=== PATIENT | male | born 1945 | race Caucasian/White ===

== ENCOUNTER 2017-08-13 18:57 | Observation (INO) | payer MEDICARE ==
[2017-08-13] MEDS ORDERED: NS 0.9% 1000 ML* 1,000 ML IV ONE (20:06)
[2017-08-13 20:28] LABS: Hematocrit 31 % (42-52); Hemoglobin 10.6 g/dl (14.0-18.0); Mean Corpuscular HGB Conc 34 g/dl (31-36); Mean Corpuscular Hemoglobin 30 pg (27-31); Mean Corpuscular Volume 88 fL (80-94); Mean Platelet Volume 7 um3 (7.4-10.4); Red Blood Count 3.57 10^6/ul (4.0-5.4); Red Cell Distribution Width 15 % (10.5-15); White Blood Count 9.1 10^3/ul (3.5-10.8)
--- NOTE | 2017-08-13 20:36 | RAD ---
HISTORY: Altered mental status COMPARISONS: None TECHNIQUE: Multiple contiguous axial CT scans were obtained of the head without intravenous contrast. FINDINGS: HEMORRHAGE/INFARCT: There is no hemorrhage or acute infarct. MASSES/SHIFT: There is no mass or shift. EXTRA-AXIAL SPACES: There are no extra-axial fluid collections. SULCI AND VENTRICLES: There is mild diffuse and proportional enlargement of the sulci and ventricles. CEREBRUM: There are no focal parenchymal abnormalities. BRAINSTEM: There are no focal parenchymal abnormalities. CEREBELLUM: There are no focal parenchymal abnormalities. VESSELS: The vessels are grossly normal. PARANASAL SINUSES: The paranasal sinuses are clear. ORBITS: The orbits are unremarkable. BONES AND SOFT TISSUE: No bone or soft tissue abnormalities are noted. OTHER: None IMPRESSION: NO ACUTE INTRACRANIAL PATHOLOGY.
[2017-08-13 20:43] LABS: ALT 17 U/L (7-52); AST 34 U/L (13-39); Albumin 3.8 g/dL (3.2-5.2); Alkaline Phosphatase 66 U/L (34-104); Anion Gap 4 mmol/L (2-11); BUN/Creatinine Ratio 33.6 (8-20); Blood Urea Nitrogen 47 mg/dL (6-24); CO2 Carbon Dioxide 31 mmol/L (22-32); Calcium 9.1 mg/dL (8.6-10.3); Chloride 105 mmol/L (101-111); Creatine Kinase 539 U/L (10-223); EGFR African American 64.1 (>60); EGFR Non-African American 49.8 (>60); Globulin 2.6 g/dL (2-4); Glucose 127 mg/dL (70-100); Magnesium 2.2 mg/dL (1.9-2.7); Potassium 3.8 mmol/L (3.5-5.0); Sodium 140 mmol/L (133-145); Total Protein 6.4 g/dL (6.4-8.9)
--- NOTE | 2017-08-13 20:43 | RAD ---
HISTORY: Altered mental status COMPARISONS: None VIEWS: 2: frontal portable view of the chest at 8:23 PM FINDINGS: LINES AND TUBES: None. CARDIOMEDIASTINAL SILHOUETTE: The cardiomediastinal silhouette is normal for portable technique. PLEURA: The costophrenic angles are sharp. No pleural abnormalities are noted. LUNG PARENCHYMA: The lungs are clear. ABDOMEN: The upper abdomen is clear. There is no subphrenic gas. BONES AND SOFT TISSUES: No bone or soft tissue abnormalities are noted. IMPRESSION: NO ACTIVE CARDIOPULMONARY DISEASE.
[2017-08-13 20:44] LABS: Troponin I 0.01 ng/mL (<0.04)
[2017-08-13 21:02] LABS: Acetaminophen < 15 mcg/mL; Alcohol < 10 mg/dL (<10); Salicylate < 2.50 mg/dL (<30)
[2017-08-13 21:07] LABS: PCO2 Arterial 41 mmHg (35-45)
--- NOTE | 2017-08-13 21:07 | ED ---
Leana Martinez Alfonso, scribed for Sosa Velasquez MD on 08/13/17 at 2043 . Altered Mental Status - HPI Summary HPI Summary: LEVEL 5 CAVAET DUE TO AMS. This patient is a 72 year [facility] worse since earlier today. The patient is not complaining of any pain. He is speaking in garbled sentences. Pt now moving all extremities in bed and talking inappropriate words. Patients daughter was visiting two days ago and asking for water two days ago "but they didn't have any cups and so I was using a mariluz cup of ice to try to rehydrate him. - History Of Current Complaint Chief Complaint: EDAltMentalStatus Stated Complaint: AMS Time Seen by Provider: 08/13/17 20:02 Hx Obtained From: Family/Deposit Clerk, Medical Records Hx From Patient Unobtainable Due To: Altered Mental Status Onset/Duration: Still Present Timing: Constant Severity Initially: Moderate Severity Currently: Severe Character: Responsiveness Aggravating Factor(s): Other - lack of po hydration per daughter Alleviating Factor(s): Nothing Associated Signs And Symptoms: Positive: Negative - Allergies/Home Medications Allergies/Adverse Reactions: Allergies Allergy/AdvReac Type Severity Reaction Status Date / Time No Known Allergies Allergy Verified 08/13/17 19:12 Home Medications: Home Medications Acetaminophen TAB* [Tylenol TAB*] 650 mg PO Q4HR PRN 08/13/17 [History Confirmed 08/13/17] Aspirin [Aspirin 81 MG TAB] 81 mg PO DAILY 08/13/17 [History Confirmed 08/13/17] Atorvastatin* [Lipitor 20 MG*] 20 mg PO DAILY 08/13/17 [History Confirmed ] Folic Acid TAB* [Folvite TAB*] 1 mg PO DAILY 08/13/17 [History Confirmed ] Lisinopril TAB* [Prinivil TAB 10 MG*] 10 mg PO DAILY 08/13/17 [History Confirmed 08/13/17] Magnesium Hydroxide LIQ* [Milk of Magnesia LIQ*] 30 ml PO DAILY PRN 08/13/17 [ History Confirmed 08/13/17] Memantine TAB* [Namenda TAB*] 10 mg PO BID 08/13/17 [History Confirmed 08/13/17] Multiple Vitamins W/ Minerals [Multiple Vitamin/Minerals] 1 tab PO DAILY [History Confirmed 08/13/17] Dsptn-7-Ghjl Ethyl Esters [Lovaza 1 gm] 1 cap PO DAILY 08/13/17 [History Confirmed 08/13/17] Ondansetron ODT TAB* [Zofran 4 MG Odt TAB*] 4 mg SL Q6HR PRN 08/13/17 [History Confirmed 08/13/17] QUEtiapine TAB* [Seroquel TAB*] 50 mg PO DAILY 08/13/17 [History Confirmed 08/13] QUEtiapine TAB* [Seroquel TAB*] 100 mg PO BEDTIME 08/13/17 [History Confirmed ] Sennosides-Docusate Sodium [Sennalax-S 8.6-50 mg] 1 tab PO BID 08/13/17 [ History Confirmed 08/13/17] Thiamine TAB* [Vitamin B-1 TAB 100 MG*] 100 mg PO DAILY 08/13/17 [History Confirmed 08/13/17] risperiDONE TAB* [Risperdal*] 1 mg PO BEDTIME 08/13/17 [History Confirmed ] PMH/Surg Hx/FS Hx/Imm Hx Previously Healthy: No Cardiovascular History: Reports: Hx Hypercholesterolemia, Hx Hypertension Opthamlomology History: Denies: Hx Legally Blind EENT History: Denies: Hx Deafness Neurological History: Reports: Hx Dementia - Surgical History Surgery Procedure, Year, and Place: unknown level 5 cavaet Infectious Disease History: No Infectious Disease History: Denies: Traveled Outside the US in Last 30 Days - Family History Known Family History: Positive: Unknown - LEVEL 5 CAVAET - Social History [facility]: [facility] Alcohol Use: None Hx Substance Use: No Substance Use Type: Reports: None Smoking Status (MU): Unknown if Ever Smoked Review of Systems Positive: Other - Dehydration. Negative: Fever Neurological: Other - AMS All Other Systems Reviewed And Are Negative: No Physical Exam Triage Information Reviewed: Yes Vital Signs On Initial Exam: Initial Vitals Temp Pulse Resp BP Pulse Ox 98.0 F 90 20 103/44 99 08/13/17 19:02 08/13/17 19:02 08/13/17 19:02 08/13/17 19:02 08/13/17 19:02 Vital Signs Reviewed: Yes Completion Of Physical Exam Limited Due To: Altered Mental Status, Level 5 Appearance: Positive: No Pain Distress, Well-Nourished, Ill-Appearing Skin: Positive: Warm, Skin Color Reflects Adequate Perfusion, Other - dry mucous membranes Head/Face: Positive: Normal Head/Face Inspection Eyes: Positive: Conjunctiva Clear ENT: Positive: Other - DRY ORAL MUCOSA Neck: Positive: Supple, Nontender, No Lymphadenopathy Respiratory/Lung Sounds: Positive: Clear to Auscultation, Breath Sounds Present , Other - No respiratory distress Cardiovascular: Positive: RRR, Pulses are Symmetrical in both Upper and Lower Extremities, Other - Brisk capillary refill. Negative: Murmur Abdomen Description: Positive: Nontender, No Organomegaly, Soft. Negative: Distended, Guarding, Hepatomegaly, McBurney's Point Tenderness, Peritoneal Signs , Pulsatile Mass, Splenomegaly Bowel Sounds: Positive: Present Musculoskeletal: Positive: Strength/ROM Intact Neurological: Positive: Disoriented, Other - Eyes open, responds to speech. Psychiatric: Positive: Normal - [place] Coma Scale Best Eye Response: 4 - Spontaneous Best Motor Response: 5 - Purposeful Movement Best Verbal Response: 3 - Inappropriate Words Coma Scale Total: 10 Glascow Coma Scale Comments: 08/17 AT 2038. Diagnostics - Vital Signs Vital Signs Temp Pulse Resp BP Pulse Ox 08/13/17 20:11 98 08/13/17 20:01 98 08/13/17 20:00 46 20 08/13/17 19:40 162 17 122/55 82 08/13/17 19:04 90 12 99/45 98 08/13/17 19:03 90 13 97 08/13/17 19:02 98.0 F 90 20 103/44 99 - Laboratory Lab Results: Lab Results 08/13/17 08/13/17 Range/Units 20:13 20:13 WBC 9.1 (3.5-10.8) 10^3/ul RBC 3.57 L (4.0-5.4) 10^6/ul Hgb 10.6 L (14.0-18.0) g/dl Hct 31 L (42-52) % MCV 88 (80-94) fL MCH 30 (27-31) pg MCHC 34 (31-36) g/dl RDW 15 (10.5-15) % Plt Count 363 (150-450) 10^3/ul MPV 7 L (7.4-10.4) um3 Neut % (Auto) 82.5 (38-83) % Lymph % (Auto) 7.6 L (25-47) % [place] % (Auto) 8.8 (1-9) % Eos % (Auto) 0.2 (0-6) % Baso % (Auto) 0.9 (0-2) % Absolute Neuts (auto) 7.5 (1.5-7.7) 10^3/ul Absolute Lymphs (auto) 0.7 L (1.0-4.8) 10^3/ul Absolute Monos (auto) 0.8 (0-0.8) 10^3/ul Absolute Eos (auto) 0 (0-0.6) 10^3/ul Absolute Basos (auto) 0.1 (0-0.2) 10^3/ul Absolute Nucleated RBC 0 10^3/ul Nucleated RBC % 0 INR (Anticoag Therapy) 0.99 (0.77-1.02) Result Diagrams: 08/13/17 20:13 08/13/17 20:13 Lab Statement: Any lab studies that have been ordered have been reviewed, and results considered in the medical decision making process. - Radiology CXR Radiology Interpretation Completed By: Radiologist - NO ACTIVE CARDIOPULMONARY DISEASE. ED physician has reviewed this radiology report. - CT Brain CT Interpretation Completed By: Radiologist - NO ACUTE INTRACRANIAL PATHOLOGY. ED physician has reviewed this radiology report. - EKG 2033 Cardiac Rate: NL EKG Rhythm: Sinus Rhythm - 84 BPM EKG Interpretation: Normal AV IV CT, QTc, axis. NAC. EKG Comparison: Other - No prior to compare. Altered Mental Statu Course/Dx - Course Assessment/Plan: Patients medications reviewed this visit. In the ED course the patient was given IV fluids. Consulted Dr. Cummins (hospitalist) at 2109 who agrees to admit. - Diagnoses Differential Diagnosis/HQI/PQRI: Hypoglycemia, Hypothermia, Intracranial Bleed, Medication Reaction, Metabolic Disorder, Sepsis Discharge Diagnoses: Altered mental status, Dehydration - Provider Notifications Discussed Care Of Patient With: Lindy Cummins Time Discussed With Above Provider: 21:10 Instructed by Provider To: Other - Consulted Dr. Cummins (hospitalist) at 2109 who agrees to admit. Discharge - Discharge Plan Condition: Stable Disposition: ADMITTED TO [facility] documentation as recorded by the Leana mayer Alfonso accurately reflects the service I personally performed and the decisions made by , Sosa Velasquez MD.
[2017-08-13 21:17] LABS: TSH (Thyroid Stimulating Horm) 0.47 mcIU/mL (0.34-5.60)
[2017-08-13 21:30] LABS: Urine Bilirubin Negative (Negative); Urine Glucose 1+(50 mg/dL) (Negative); Urine Nitrite Negative (Negative)
[2017-08-13] MEDS ORDERED: Acetaminophen TAB* 325 MG PO PRN (22:12)
[2017-08-13] MEDS ORDERED: Magnesium Hydroxide LIQ* 30 ML UDC PO PRN (22:12)
[2017-08-13] MEDS ORDERED: QUEtiapine TAB* 100 MG PO SCH (23:00)
[2017-08-13] MEDS ORDERED: risperiDONE TAB* 1 MG PO SCH (23:00)
[2017-08-13] MEDS: NS 0.9% 1000 ML* 1,000 ML IV SCH (23:20)
--- NOTE | 2017-08-14 01:40 | HP ---
CC: Dr. Chace Wayne, [facility] * HISTORY AND PHYSICAL: DATE OF ADMISSION: 08/13/17 PRIMARY CARE PROVIDER: Dr. Chace Wayne at [facility]. CHIEF COMPLAINT: Altered mental status. HISTORY OF PRESENT ILLNESS: Mr. Cam is a 72-year-old male who was admitted to [facility] on 05/28/17 from [facility] in [place], [place] after he was found to be wandering in his neighborhood in the nude and was confused. Prior to his hospitalization in [place], the patient had been living alone, but was unable to take his own medications, was eating food, and had maggots on himself and in his home. At that point, it was determined he could no longer live alone. The patient reportedly had an extensive workup there. It was felt that his confusion was likely related to dementia and possibly related to history of alcohol use. The patient was seen by myself at [facility] approximately 3 weeks ago. At that time, he was standing, looking at the window in his room. He told me he enjoyed looking at the animals outside. The patient was reportedly eating dinner on the evening of admission to [facility] when he suddenly stopped eating. At that time, nursing began to feed him. He chocked on the food and then reportedly had some shaking. The patient's blood pressure was found to be low at 70 systolic and he was sent to the emergency room for evaluation. The patient in the emergency room was noted to be very lethargic. He has perked up with IV fluids and at this point, is able to tell me he does feel thirsty. He tells me he feels great. He denies any pain. The rest of his history is unreliable. PAST MEDICAL HISTORY: 1. Hypertension. 2. Dementia of unknown etiology. 3. History of alcohol abuse. PAST SURGICAL HISTORY: Unknown. ALLERGIES: Unknown. FAMILY HISTORY: Unknown. SOCIAL HISTORY: The patient is currently residing at [facility] in a long- term care unit. He may have had a history of heavy alcohol use, though nothing recently. REVIEW OF SYSTEMS: Unobtainable from the patient as he speaks nonsense when he is asked a question. PHYSICAL EXAMINATION GENERAL: The patient is a well-developed, thin, elderly male, sitting in the stretcher, pulling on the blankets and the cords trying to remove something that is not there and handed to me to put in my pocket. VITAL SIGNS: Blood pressure 122/55, pulse 78, respirations 15, temp 98.0, O2 sat 99% on room air. HEENT: Pupils are equal and round. Extraocular muscles are intact. Oropharynx is clear. Oral mucosa is slightly dry. There is no submandibular, cervical, or supraclavicular adenopathy. Thyroid is nonenlarged. No thyroid nodules noted. PULMONARY: Lungs are clear to auscultation bilaterally. CARDIAC: Normal S1 and S2. Regular rate and rhythm. I do not appreciate any murmurs. There is no lower extremity edema. ABDOMEN: Bowel sounds present. Abdomen is soft and nondistended. He does push my hand away and tells me to stop palpating his abdomen. MUSCULOSKELETAL: There is no cyanosis or clubbing of the digits. There is full active range of motion of all 4 extremities. SKIN: Warm and dry. There are no rashes. NEUROLOGIC: Cranial nerves II through XII appear to be grossly intact. Sensation is intact to light touch throughout. Strength appears to be within normal limits. LABORATORY DATA: WBC 9.1, hemoglobin 10.6, hematocrit 31, platelets 363, INR 0.99. Sodium 140, potassium 3.8, chloride 105, CO2 31, BUN 47, creatinine 1.40, glucose 127, lactic acid 1.0, calcium 9.1, magnesium 2.2, bilirubin 0.6, AST 34 , ALT 17, alk phos 66. Ammonia 30, CPK 539. Troponin 0.01, albumin 3.8, TSH 0.47. Urinalysis reveals a specific gravity of 1.021 and otherwise negative. Salicylate less than 2.5, acetaminophen less than 15, and alcohol less than 10. ABG 7.47/41/91. EKG reveals normal sinus rhythm without any acute ST or T-wave abnormalities. Chest x-ray, no active cardiopulmonary disease. CT brain, no acute intracranial pathology. ASSESSMENT AND PLAN: Mr. Cam is a 72-year-old man with a known history of dementia, possible confusion secondary to heavy alcohol use in the past who presents to the emergency room with altered mental status while eating dinner at [facility]. 1. Altered mental status. The patient is improved after receiving IV fluid in the emergency room. The patient appears to be more volume deplete than he was when labs were obtained in May. This is on the basis of an elevated BUN and creatinine. The patient is definitely more alert now than when he initially presented to [facility]. Unfortunately, I am having a hard time comparing his level of confusion at this point with how he was when I saw him at [facility] approximately 3 weeks ago as he did not speak to me much other than to tell me he enjoyed watching the animals outside his window. The patient does speak essentially nonsense. He appears to be visualizing items that are not present and tries to give me whatever he sees that is actually not there. The patient does not have any evidence of infection at this point. I questioned if he may have just been slightly dehydrated as to the cause of his altered mental status. The patient may have had a chocking episode on the evening of admission; however, there are no clear signs of aspiration at this point. Therefore, I do not think that this was the cause of his altered mental status. For now, the patient will be maintained on his Namenda, thiamine, Seroquel, and Risperdal. The patient's mental status will be monitored overnight. 2. Hypertension. The patient's blood pressure is under good control at this point. He will be maintained on his usual dose of lisinopril. 3. Hyperlipidemia. We will continue Lipitor 20 mg p.o. q.h.s. 4. DVT prophylaxis. According to the Adult Thrombosis Prophylaxis Risk Factor Assessment Guide, the patient has a total risk factor score of 2 making him moderate risk. He will be placed on heparin 5000 units subcutaneous q.8 hours. 5. Code status is full. The patient's daughter, Radha, is his healthcare proxy. TIME SPENT: 50 minutes were spent admitting this patient. [id number]/[facility] #: [id number] CARLOS
[2017-08-14] MEDS: Heparin VIAL(*) 5000 UNITS/ML VIAL (FIVE THOUSAND) SUBCUT SCH ×2 (05:33→14:04)
[2017-08-14 06:06] LABS: Hematocrit 31 % (42-52); Hemoglobin 10.2 g/dl (14.0-18.0); Mean Corpuscular HGB Conc 33 g/dl (31-36); Mean Corpuscular Hemoglobin 29 pg (27-31); Mean Corpuscular Volume 88 fL (80-94); Mean Platelet Volume 7 um3 (7.4-10.4); Red Blood Count 3.51 10^6/ul (4.0-5.4); Red Cell Distribution Width 15 % (10.5-15); White Blood Count 7.4 10^3/ul (3.5-10.8)
[2017-08-14 06:32] LABS: BUN/Creatinine Ratio 37.4 (8-20); Calcium 9.2 mg/dL (8.6-10.3); EGFR African American 95.6 (>60); EGFR Non-African American 74.3 (>60); Potassium 3.8 mmol/L (3.5-5.0)
[2017-08-14] MEDS ORDERED: Senna TAB PO SCH (09:00)
[2017-08-14] MEDS ORDERED: QUEtiapine TAB* 25 MG PO SCH (09:00)
[2017-08-14] MEDS ORDERED: Aspirin EC Low Dose* 81 MG TAB.EC PO SCH (09:00)
[2017-08-14] MEDS ORDERED: Memantine TAB* 10 MG PO SCH (09:00)
[2017-08-14] MEDS ORDERED: Senna/Docusate (NF) TAB PO SCH (09:00)
[2017-08-14] MEDS ORDERED: Folic Acid TAB* 1 MG PO SCH (09:00)
[2017-08-14] MEDS ORDERED: Lisinopril TAB* 10 MG PO SCH (09:00)
[2017-08-14] MEDS ORDERED: Atorvastatin* 20 MG TAB PO SCH (09:00)
[2017-08-14] MEDS ORDERED: Thiamine TAB* 100 MG TAB PO SCH (09:00)
[2017-08-14] MEDS ORDERED: Docusate CAP* 100 MG PO SCH (09:00)
[2017-08-14 09:34] VITALS: BP 147/61
[2017-08-14] MEDS: NS 0.9% 1000 ML* 1,000 ML IV SCH (10:03)
--- NOTE | 2017-08-14 12:05 | DS ---
CC: [facility] * DATE OF ADMISSION: 08/13/2017. DATE OF DISCHARGE: 08/14/2017. PRIMARY CARE PROVIDER: [facility]. DISCHARGING PROVIDER: DAVID Torres. SUPERVISING PHYSICIAN: Dr. Kiesha Zamora * (dictated by DAVID Torres). PRIMARY DISCHARGE DIAGNOSES: 1. Altered mental status - perhaps a presyncopal event. 2. Acute kidney injury secondary to hypovolemia. SECONDARY DISCHARGE DIAGNOSES: 1. Severe dementia. 2. Remote history of alcoholism. 3. Hypertension. DISCHARGE MEDICATIONS: 1. Acetaminophen 650 mg p.o. q.4 hours as needed for pain or fever. 2. Aspirin 81 mg p.o. daily. 3. Lipitor 20 mg p.o. daily. 4. Folic acid 1 mg p.o. daily. 5. Lisinopril 10 mg p.o. daily. 6. Magnesium Hydroxide 30 ml p.o. daily. 7. Namenda 10 mg p.o. twice daily. 8. Multivitamin one tablet p.o. daily. 9. [place]-3 fatty acids one capsule p.o. daily. 10. Zofran 4 mg sublingual q.6 hours as needed for nausea. 11. Seroquel 50 mg in the morning and 100 mg at bedtime. 12. Risperdal 1 mg p.o. at bedtime. 13. Senna one tablet p.o. twice daily. 14. Thiamin 100 mg p.o. daily. Medication changes: None. HOSPITAL IMAGIN. CT brain shows no acute pathology. 2. Chest x-ray shows no acute process. 3. EKG shows a sinus rhythm without ischemic changes. HOSPITAL COURSE: This is a 72-year-old gentleman with advanced dementia and a current resident at [facility] who was brought to the emergency department for evaluation after an acute episode of decreased responsiveness and hypotension. The patient was seated on the floor at his residence which is not an unusual behavior for him, and when he was assisted to his feet by nursing staff he seemed somewhat unsteady. He was brought to dinner and during dinner seemed to have an acute episode of decreased responsiveness while he had food in his mouth. He did not choke, no obvious aspiration. He was assess by the nurse and was found to be hypotensive and tachycardic. He was responsive to painful stimuli, but otherwise not responding to usual tactile and verbal stimulation. In the emergency department, imaging of his brain was completed which was benign. Labs indicated an elevated BUN and creatinine above baseline. CBC was unremarkable. There was no leukocytosis. He was afebrile. His ABG was largely normal. His troponin was negative. TSH was normal. Urine analysis was unremarkable. Toxicology screen was normal. The patient was subsequently admitted to a period of observation and hydrated with normal saline. Repeat labs showed correction of his prior acute kidney injury. Called and spoke with the nursing staff who was familiar with the patient at [facility] to review the acute event above. The patient's mental status seems to have returned to baseline where he is quite confused, impulsive and seems to experience some intermittent visual hallucinations, but is not acutely agitated. Based on description from nursing staff, it sounds like he is quite active during the day, wonder what his fluid intake really looks like and he did appear to be hypovolemic in the emergency department. The acute episode may have been a syncopal or presyncopal episode secondary to hypotension resulting from hypovolemia. He appears to be asymptomatic and back to baseline at this time. DISPOSITION AND FOLLOW-UP PLAN: The patient is being discharged back to [facility] where he is a long-term resident. No changes were made to his home medications. Recommend that adequate fluid intake is encouraged by nursing staff throughout the day. No other specific follow-up recommended at this time. DAVID TORRES [id number]/[facility] #: [id number] CARLOS
== END 2017-08-14 14:26 ==
LOC: ED 18:57 → MEDTELE 21:14
PROVIDERS: ADMIT Hospitalist; ATTEND Internal Medicine
DX: R41.82 Altered mental status, unspecified (principal); N17.9 Acute kidney failure, unspecified; E86.1 Hypovolemia; F03.90 Unspecified dementia, unspecified severity, without behavioral disturbance, psychotic disturbance, mood disturbance, and anxiety; I10 Essential (primary) hypertension; F10.20 Alcohol dependence, uncomplicated; E78.5 Hyperlipidemia, unspecified; Z79.899 Other long term (current) drug therapy
CPT/HCPCS: 36415; 36600; 70450; 71010; 80048; 80053; 80320; 80329; 81003; 82140; 82550; 82803; 83605; 83735; 84443; 84484; 85025; 85027; 85610; 87641; 93005; 96360; 96361; 99284; A9270-GY; G0378; G0480; J1644

== ENCOUNTER 2017-08-17 17:38 | Emergency (ER) | payer MEDICARE ==
[2017-08-17 18:57] VITALS: BP 138/61
--- NOTE | 2017-09-06 19:10 | ED ---
Mandy Martinez Thomas, scribed for Austin Dejesus MD on 08/17/17 at 1834 . Complex/Multi-Sys Presentation - HPI Summary HPI Summary: The patient is a 72 year old male brought in from [facility] after they say he was tachycardia, hypoxic, dehydrated, and possibly had sepsis. In the emergency department, his heart rate is 93 BPM and his SaO2 is 98. He is a little demented and able to follow simple instructions. He is not orientation to place, date, or time. He not in any acute distress. - History Of Current Complaint Chief Complaint: EDGeneral Hx Obtained From: Patient Onset/Duration: Resolved Timing: Constant Severity Currently: None Location: Negative Aggravating Factor(s): None Alleviating Factor(s): Spontaneous resolution Associated Signs And Symptoms: Positive: Other - A little demented - Allergies/Home Medications Allergies/Adverse Reactions: Allergies Allergy/AdvReac Type Severity Reaction Status Date / Time No Known Allergies Allergy Verified 08/13/17 19:12 Home Medications: Home Medications Aspirin EC Low Dose* [Ecotrin EC Low Dose 81 MG*] 81 mg PO DAILY 08/17/17 [ History Confirmed 08/17/17] Magnesium Hydroxide LIQ* [Milk of Magnesia LIQ*] 30 ml PO BID PRN 08/17/17 [ History Confirmed 08/17/17] PMH/Surg Hx/FS Hx/Imm Hx Previously Healthy: No Cardiovascular History: Reports: Hx Hypercholesterolemia, Hx Hypertension Sensory History: Denies: Hx Contacts or Glasses, Hx Legally Blind, Hx Deafness, Hx Hearing Aid Opthamlomology History: Denies: Hx Contacts or Glasses, Hx Legally Blind Neurological History: Reports: Hx Dementia - Surgical History Surgery Procedure, Year, and Place: unknown level 5 [facility] Infectious Disease History: No Infectious Disease History: Denies: Traveled Outside the [place] in Last 30 Days - Family History Known Family History: Positive: Other - Patient is a little demented and does not recall - Social History Alcohol Use: None Hx Substance Use: No Substance Use Type: Reports: None Smoking Status (MU): Unknown if Ever Smoked Review of Systems Negative: Fever Neurological: Other - A little demented All Other Systems Reviewed And Are Negative: Yes Physical Exam - Summary Physical Exam Summary: Appearance: Well-appearing, Well-nourished Skin: Warm, Dry, No rash Eyes: Normal, PERRL, EOMI, sclera anicteric ENT: Normal Neck: Supple, nontender Respiratory: Clear to auscultation. He is not hypoxic. Cardiovascular: He is not tachycardic. S1, S2, no murmur, no rub, no gallop Abdomen: Soft, nontender, no organomegaly Bowel sounds: Present Musculoskeletal: Normal, Strength/ROM Intact, no edema, pulses symmetrical Neurological: Alert and oriented to name but not to place, time, place, or things. He is a little demented. He follows simple commands. Psychiatric: affect normal, behavior appropriate, dressed appropriately, judgment intact Triage Information Reviewed: Yes Vital Signs On Initial Exam: Initial Vitals Temp Pulse Resp BP Pulse Ox 98 F 80 13 118/60 100 08/17/17 17:43 08/17/17 17:43 08/17/17 17:43 08/17/17 17:43 08/17/17 17:43 Vital Signs Reviewed: Yes Diagnostics - Vital Signs Vital Signs Temp Pulse Resp BP Pulse Ox 08/17/17 17:43 98 F 80 13 118/60 100 - Laboratory Lab Statement: Any lab studies that have been ordered have been reviewed, and results considered in the medical decision making process. Complex Multi-Symp Course/Dx Assessment/Plan: The patient is a 72 year old male brought in from [facility] after they say he was tachycardia, hypoxic, dehydrated, and possibly had sepsis. In the emergency department, his heart rate is 93 BPM and his SaO2 is 98. He is a little demented and able to follow simple instructions. He is not orientation to place, date, or time. He not in any acute distress. He is diagnosed with dementia and discharged home. - Diagnoses Provider Diagnoses: Dementia of unknown cause and no change Discharge - Discharge Plan Condition: Stable Disposition: HOME Referrals: No Primary Care Phys,NOPCP [Medical Doctor] - The documentation as recorded by the Mandy mayer Thomas accurately reflects the service I personally performed and the decisions made by me, Austin Dejesus MD.
== END 2017-08-17 18:55 ==
LOC: ED 17:38
DX: F03.90 Unspecified dementia, unspecified severity, without behavioral disturbance, psychotic disturbance, mood disturbance, and anxiety (principal)
CPT/HCPCS: 99281